=== PATIENT | female | born 1955 | race African-American/Black ===

== ENCOUNTER 2018-09-29 09:29 | Emergency (ER) | payer BC, OTHER ==
--- OUTSIDE RECORDS SUMMARY | 2018-09-29 09:32 | XMS REPORT | Clinical Summary ---
:1955 Author Organization [facility] Address [address] [place] [address] Care Team Providers Name Role Phone Tiffany Pratt MD Primary Care Provider Unavailable Allergies Active Allergy Reactions Severity Noted Date Comments [place] Codeine Nausea And Vomiting, GI Intolerance 05/07/2013 Ibuprofen Shortness Of Breath High 06/29/2008 asthma asthma Medications Medication Sig Dispensed Refills Start Date End Date Status CALCIUM Take by mouth. 0 Active POLYCARBOPHIL (FIBER THERAPY, CA POLYCARBOPH, ORAL) cetirizine (ZyrTEC) Take 10 mg by 0 Active 10 MG tablet mouth nightly. GARLIC ORAL Take by mouth. 0 Active magnesium chloride Take 64 mg by 0 Active 64 mg mouth daily. tablet,delayed release (DR/EC) DR tablet multivit-min/iron/f Take by mouth. 0 Active olic/lutein (CENTRUM SILVER WOMEN ORAL) propranolol Take 1 tablet 180 tablet 1 08/31/2018 08/31/19 Active (INDERAL) 10 MG (10 mg total) 20 tabletIndications: by mouth 2 Benign essential (two) times a hypertension day. chlorthalidone Take 1 tablet 90 tablet 1 08/31/2018 11/30/19 Active (HYGROTEN) 25 MG (25 mg total) 19 tabletIndications: by mouth daily Benign essential for 90 days. hypertension LORAZepam (ATIVAN) Take 1 tablet 90 tablet 0 08/31/2018 11/30/19 Active 1 MG (1 mg total) 19 tabletIndications: by mouth daily Anxiety as needed for anxiety for up to 90 days. butalbital-acetamin Take 1 tablet 20 tablet 0 08/31/2018 Active ophen-caff by mouth every (FIORICET, ESGIC) 6 (six) hours 50-325-40 mg per as needed for tabletIndications: headaches or Chronic migraine for tension-type up to 20 headache, not doses. intractable fexofenadine Take 180 mg by 0 08/31/19 Discontinued (AL) 180 MG mouth daily. 19 tablet fluticasone 0 05/05/2016 12/21/19 Discontinued (FLONASE) 50 18 mcg/actuation nasal spray FOLIC Take by mouth. 0 05/06/20 Discontinued ACID/MV,FE,MIN 18 (CENTRUM ORAL) CHOLECALCIFEROL, Take by mouth. 0 06/02/20 Discontinued VITAMIN D3, 18 (VITAMIN D3 ORAL) VITAMIN B COMPLEX & Take by mouth. 0 06/02/20 Discontinued VIT C NO.4 (SUPER B 18 COMPLEX + C ORAL) NON FORMULARY L glutamine - 0 12/21/19 Discontinued po daily. 18 cyanocobalamin 500 Take 500 mcg 0 05/06/20 Discontinued MCG tablet by mouth. 18 ferrous sulfate 325 Take by mouth. 0 06/02/20 Discontinued (65 FE) MG tablet 18 budesonide-formoter Inhale 2 puffs 10.2 Inhaler 3 06/11/2017 10/24/19 Discontinued ol (SYMBICORT) 2 (two) times 18 160-4.5 a day. mcg/actuation inhalerIndications: Intermittent asthma, unspecified asthma severity, unspecified whether complicated chlorthalidone Take 1 tablet 90 tablet 3 06/11/2017 02/15/20 Discontinued (HYGROTEN) 25 MG (25 mg total) 18 tabletIndications: by mouth daily Benign essential for 90 days. hypertension LORAZepam (ATIVAN) Take 1 tablet 90 tablet 1 06/11/2017 12/28/19 Discontinued 1 MG (1 mg total) 18 tabletIndications: by mouth daily Anxiety as needed for anxiety for up to 90 days. potassium chloride Take 1 capsule 90 capsule 3 06/11/2017 10/24/19 Discontinued (MICRO-K) 10 MEQ CR (10 mEq total) 18 capsuleIndications: by mouth Benign essential daily. hypertension albuterol (PROAIR Inhale 2 puffs 18 g 3 06/11/2017 10/24/19 Discontinued HFA,PROVENTIL every 6 (six) 18 HFA,VENTOLIN HFA) hours as 90 mcg/actuation needed for inhalerIndications: wheezing or Intermittent shortness of asthma, unspecified breath. asthma severity, unspecified whether complicated budesonide-formoter Inhale 2 puffs 10.2 Inhaler 3 10/24/2017 05/06/20 Discontinued ol (SYMBICORT) 2 (two) times 18 160-4.5 a day. mcg/actuation inhalerIndications: Intermittent asthma, unspecified asthma severity, unspecified whether complicated potassium chloride Take 1 capsule 90 capsule 1 10/24/2017 05/06/20 Discontinued (MICRO-K) 10 MEQ CR (10 mEq total) 18 capsuleIndications: by mouth Benign essential daily. hypertension albuterol (PROAIR Inhale 2 puffs 18 g 3 10/24/2017 10/25/19 Discontinued HFA,PROVENTIL every 6 (six) 18 HFA,VENTOLIN HFA) hours as 90 mcg/actuation needed for inhalerIndications: wheezing or Intermittent shortness of asthma, unspecified breath. asthma severity, unspecified whether complicated albuterol (PROAIR Inhale 2 puffs 18 g 3 10/25/2017 02/16/20 Discontinued HFA) 90 every 6 (six) 18 mcg/actuation hours as inhaler needed for wheezing. LORAZepam (ATIVAN) Take 1 tablet 90 tablet 0 12/29/2017 02/15/20 Discontinued 1 MG (1 mg total) 18 tabletIndications: by mouth daily Anxiety as needed for anxiety for up to 90 days. chlorthalidone 1 tablet 3 01/19/2018 05/06/20 Discontinued (HYGROTEN) 25 MG daily. 18 tablet cyanocobalamin Take 1 tablet 0 06/02/20 Discontinued (VITAMIN B-12) 500 by mouth 18 MCG tablet daily. montelukast Take 1 tablet 0 08/31/19 Discontinued (SINGULAIR) 10 mg by mouth 19 tablet nightly. folic Take 1 tablet 0 06/02/20 Discontinued acid/multivit,iron, by mouth 18 insurance claims examiner (CENTRUM daily. ORAL) calcium Take 1 tablet 0 05/18/20 Discontinued polycarbophil by mouth 18 (FIBER-TABS ORAL) daily. MAGNESIUM ORAL Take 1 tablet 0 06/02/20 Discontinued by mouth every 18 7 days. chlorthalidone Take 1 tablet 90 tablet 1 02/15/2018 05/07/20 Discontinued (HYGROTEN) 25 MG (25 mg total) 18 tabletIndications: by mouth daily Benign essential for 90 days. hypertension LORAZepam (ATIVAN) Take 1 tablet 90 tablet 0 02/15/2018 08/31/19 Discontinued 1 MG (1 mg total) 19 tabletIndications: by mouth daily Anxiety as needed for anxiety for up to 90 days. albuterol (PROAIR Inhale 2 puffs 18 g 3 02/15/2018 06/02/20 Discontinued HFA) 90 every 6 (six) 18 mcg/actuation hours as inhaler needed for wheezing. potassium chloride Take 1 capsule 90 capsule 1 05/07/2018 08/31/19 Discontinued (MICRO-K) 10 MEQ CR (10 mEq total) 19 capsuleIndications: by mouth Benign essential daily. hypertension chlorthalidone Take 1 tablet 90 tablet 1 05/08/2018 08/31/19 Discontinued (HYGROTEN) 25 MG (25 mg total) 19 tabletIndications: by mouth daily Benign essential for 90 days. hypertension amoxicillin-pot TK 1 T PO Q 12 0 05/13/2018 06/02/20 Discontinued clavulanate H FOR 10 DAYS 18 (AUGMENTIN) 875-125 mg per tablet triamcinolone 2 sprays into 0 06/02/20 Discontinued (NASACORT) 55 mcg each nostril 18 nasal inhaler daily. fluconazole Take 1 tablet 1 tablet 1 05/19/2018 05/19/20 (DIFLUCAN) 150 MG (150 mg total) 18 tabletIndications: by mouth once Prophylactic for 1 dose. antibiotic propranolol Take 1 tablet 60 tablet 0 06/29/2018 08/31/19 Discontinued (INDERAL) 10 MG (10 mg total) 19 tabletIndications: by mouth 2 Benign essential (two) times a hypertension day. Active Problems Problem Noted Date SBO (small bowel obstruction) 05/07/2013 MVP (mitral valve prolapse) 04/11/2013 H/O goiter 04/11/2013 Benign essential hypertension 04/11/2013 Asthma 04/11/2013 Anxiety 04/11/2013 Encounters Date Type Specialty Care Team Description 09/20/2018 Telephone Family Medicine Quin Fuentes MA 08/31/2018 Office Visit Family Medicine Tiffany Pratt MD Chronic tension- type headache, not intractable (Primary Dx); Benign essential hypertension; Anxiety 08/25/2018 Telephone Family Tiffany Arellano MD 06/29/2018 Office Visit Family Medicine Tiffany Pratt MD Benign essential hypertension (Primary Dx) 06/24/2018 Emergency Emergency Medicine Ifeoma Ward III, MD hypertension (Primary Dx) 06/24/2018 Telephone [facility] Quin Fuentes MA 06/02/2018 Office Visit [facility] Tiffany Pratt MD Other fatigue ( Primary Dx); Dizziness; Nasal congestion; Tingling 05/31/2018 Telephone [facility] Quin Fuentes, VALENTINA 05/27/2018 Telephone [facility] Quin Fuentes, VALENTINA 05/26/2018 Orders Only [facility] Quin Fuentes MA Chronic pulmonary congestion (Primary Dx) 05/26/2018 Telephone [facility] Tiffany Pratt MD 05/19/2018 Telephone [facility] Quin Fuentes MA 05/19/2018 Orders Only [facility] Tiffany Arellano MD Prophylactic antibiotic (Primary Dx) 05/18/2018 Office Visit [facility] Tiffany Arellano MD Feeling light headed (Primary Dx); Upper respiratory tract infection, unspecified type; Benign essential hypertension; H/O goiter 05/11/2018 Telephone [facility] Quin Fuentes MA 05/07/2018 Refill Family Tiffany Arellano MD Benign essential hypertension 05/06/2018 Office Visit Family Tiffany Arellano MD Epigastric pain ( Primary Dx); Hepatomegaly; Thyromegaly 05/06/2018 Refill Family Tiffany Arellano MD Benign essential hypertension 05/06/2018 Refill Family Courtney Grant Benign essential hypertension 05/06/2018 Telephone Family Tiffany Arellano MD 02/15/2018 Refill [facility] Quin Hackett MA 02/14/2018 Refill Family Tiffany Arellano MD Benign essential hypertension; Anxiety 02/14/2018 Refill Family Courtney Grant Benign essential hypertension 01/26/2018 Office Visit Family Tiffany Arellano MD Routine check-up (Primary Dx); Screening for deficiency anemia; Screening for diabetes mellitus (DM); Screening for hyperlipidemia; Screening for thyroid disorder; Screening for breast cancer; Post-menopausal; Screening for colon cancer 12/27/2017 Refill [facility] Medicine Quin Fuentes MA Anxiety 12/20/2017 Office Visit Family Tiffany Arellano MD Dizziness ( Primary Dx); Tingling; Benign essential hypertension; Vitamin D deficiency; Congestion of left ear 10/25/2017 Refill Family Tiffany Arellano MD 10/25/2017 Orders Only Family Medicine Courtney Whitt MD 10/24/2017 Refill Family Tiffany Arellano MD Intermittent asthma, unspecified asthma severity, unspecified whether complicated; Benign essential hypertension after 09/28/2017 Immunizations Name Dates Previously Given Next Due FLUZONE HIGH-DOSE PF 04/28/2018 Hep A, Unspecified 12/28/2012, 11/21/2012 Hep B, Unspecified 12/28/2012, 11/21/2012 Influenza Trivalent 05/30/2016 Meningococcal Polysaccharide 11/21/2012 Pneumococcal Conjugate 13-Valent 06/15/2016 Tdap 11/21/2012 Zoster 11/21/2012 Zoster Vaccine Recombinant 04/28/2018 Family History Medical History Relation Name Comments Hypertension Father Edmund toledo Cancer Maternal Grandmother Colleen tapia Asthma Mother Amy toledo Relation Name Status Comments Father Edmund toledo Maternal Grandmother Colleen tapia Mother Amy toledo Social History Tobacco Use Types Packs/Day Years Used Date Never Smoker Smokeless Tobacco: Never Used Alcohol Use Drinks/Week oz/Week Comments No Sex Assigned at Date Recorded Not on file Job Start Date Occupation Industry Not on file Not on file Not on file Travel History Travel Start Travel End No recent travel history available. Last Filed Vital Signs Vital Sign Reading Time Taken Blood Pressure 131/86 08/31/2018 10:08 AM [facility] Pulse 70 08/31/2018 10:08 AM [facility] Temperature 36.6 C (97.9 F) 08/31/2018 10:08 AM [facility] Respiratory Rate 17 06/29/2018 1:39 PM CDT Oxygen Saturation 97% 08/31/2018 10:08 AM [facility] Inhaled Oxygen Concentration - - Weight 80.7 kg (178 lb) 08/31/2018 10:08 AM [facility] Height 172.7 cm (5' 8") 08/31/2018 10:08 AM [facility] Body Mass Index 27.06 08/31/2018 10:08 AM [facility] Plan of Treatment Date Type Specialty Care Team Description 09/29/2018 Office Visit Family Tiffany Arellano MD [address] [address] [address] [place], [place] [id number] Osmin Robles DO [address] [facility] [address] [place], [place] [id number] 11/07/2018 Office Visit Family Medicine Tiffany Pratt MD [address] [address] [address] [place] [address] Health Maintenance Due Date Last Done Comments CERVICAL CANCER SCREENING 01/15/1976 COLON CANCER SCREENING 2005 SHINGLES VACCINES (2 of 3) 06/23/2018 04/28/2018 BREAST CANCER SCREENING 10/10/2018 10/10/2016 INFLUENZA VACCINE Completed 04/28/2018, 05/30/2016 Procedures Procedure Name Priority Date/Time Associated Diagnosis Comments MANUAL DIFFERENTIAL Routine 06/24/2018 4:00 PM CDT CBC HEMOGRAM Routine 06/24/2018 4:00 Results for this PM CDT procedure are in the results section. ESTIMATED GFR STAT 06/24/2018 4:00 Results for this PM CDT procedure are in the results section. B NATRIURETIC PEP, STAT 06/24/2018 4:00 Results for this I-STAT PM CDT procedure are in the results section. CREATINE KINASE, TOTAL STAT 06/24/2018 4:00 Results for this (CPK) PM CDT procedure are in the results section. TROPONIN, I-STAT STAT 06/24/2018 4:00 Results for this PM CDT procedure are in the results section. COMPREHENSIVE STAT 06/24/2018 4:00 Results for this METABOLIC PANEL PM CDT procedure are in the results section. ECG 12-LEAD STAT 06/24/2018 3:50 Results for this PM CDT procedure are in the results section. ECG ED PRELIMINARY Routine 06/24/2018 3:42 Results for this INTERPRETATION PM CDT procedure are in the results section. VITAMIN D 25 HYDROXY Routine 06/02/2018 10:45 Other fatigue Results for this LEVEL AM CDT Dizziness procedure are in Nasal congestion the results Tingling section. BASIC METABOLIC PANEL Routine 06/02/2018 10:45 Other fatigue Results for this AM CDT Dizziness procedure are in Nasal congestion the results Tingling section. URINALYSIS, AUTOMATED Routine 05/06/2018 10:32 Results for this WITH MICROSCOPY AM CDT procedure are in the results section. URINE CULTURE Routine 05/06/2018 10:32 Epigastric pain Results for this AM CDT procedure are in the results section. THYROID STIMULATING Routine 02/03/2018 8:30 Screening for thyroid Results for this HORMONE AM CDT disorder procedure are in the results section. HEPATIC FUNCTION PANEL Routine 02/03/2018 8:30 Screening for Results for this AM CDT hyperlipidemia procedure are in the results section. LIPID PANEL Routine 02/03/2018 8:30 Screening for Results for this AM CDT hyperlipidemia procedure are in the results section. HEMOGLOBIN A1C Routine 02/03/2018 8:30 Screening for Results for this AM CDT diabetes mellitus procedure are in (DM) the results section. CBC WITH PLATELET AND Routine 02/03/2018 8:30 Screening for Results for this DIFFERENTIAL AM CDT deficiency anemia procedure are in the results section. VITAMIN D 25 HYDROXY Routine 12/20/2017 12:32 Vitamin D deficiency Results for this LEVEL PM CDT procedure are in the results section. BASIC METABOLIC PANEL Routine 12/20/2017 12:32 Dizziness Results for this PM CDT Tingling procedure are in the results section. after 09/28/2017 Results Estimated GFR (06/24/2018 4:00 PM CDT) Estimated GFR >=90 mL/min/1.73 m2 DEPARTMENT OF Comment: PATHOLOGY AND GENOMIC CatergoryUnitsInterpretation [facility] G1 >=90 Normal or high [facility] G2 60-89Mildly decreased CENTER [id number] to moderately decreased [id number] to severely decreased G4 15-29Severely decreased G5 <15Kidney failure The eGFR was calculated using the Chronic Kidney Disease Epidemiology Collaboration (CKD-EPI) equation. Interpretation is based on recommendations of the National Kidney Foundation-Kidney Disease Outcomes Quality Initiative (NKF-KDOQI) published in 2014. Specimen Plasma specimen Performing Organization Address City/State/Zipcode Phone Number DEPARTMENT OF PATHOLOGY AND [address] [place] [address] [facility] Troponin, I-Stat (06/24/2018 4:00 PM CDT) Troponin, I-Stat 0.00 0.00 - 0.08 ng/mL DEPARTMENT OF Comment: PATHOLOGY AND GENOMIC 0.09 - 1.49 ng/mlMay indicate increased risk of acute [facility] coronary syndrome. [facility] >=1.5 ng/mlConsistent with acute myocardial CENTER infarction. The diagnostic value of a single normal or non-diagnostic result is questionable.Serial samples at 2-6 hour intervals are required to rule out acute myocardial injury. Specimen Plasma specimen Performing Organization Address City/State/Zipcode Phone Number DEPARTMENT OF PATHOLOGY AND [address] [place] [address] [facility] B natriuretic pep, I-Stat (06/24/2018 4:00 PM CDT) BNP, I-Stat 37 0 - 100 pg/mL DEPARTMENT OF PATHOLOGY AND GENOMIC MEDICINE [facility] Specimen Blood Performing Organization Address City/State/Zipcode Phone Number DEPARTMENT OF PATHOLOGY AND [address] [place] [address] [facility] CBC hemogram (06/24/2018 4:00 PM CDT) WBC 4.03 (L) 4.50 - 11.00 k/uL [facility] RBC 4.04 (L) 4.20 - 5.50 m/uL [facility] HGB 11.5 (L) 12.0 - 16.0 g/dL [facility] HCT 34.5 (L) 37.0 - 47.0 % [facility] MCV 85.4 82.0 - 100.0 fL [facility] MCH 28.5 27.0 - 34.0 pg [facility] MCHC 33.3 31.0 - 37.0 g/dL [facility] RDW - SD 39.5 37.0 - 55.0 fL [facility] MPV 10.4 8.8 - 13.2 fL [facility] Platelet count 284 150 - 400 k/uL [facility] Performing Organization Address City/State/Zipcode Phone Number DEPARTMENT OF PATHOLOGY AND [address] Creatine kinase, total (CPK) (06/24/2018 4:00 PM CDT) Creatine kinase 84 30 - 190 U/L [facility] Specimen Plasma specimen Performing Organization Address City/State/Zipcode Phone Number DEPARTMENT OF PATHOLOGY AND [address] [place], [place] [id number] [place] [address] Comprehensive metabolic panel (06/24/2018 4:00 PM CDT) Sodium 144 128 - 145 mEq/L [facility] Potassium 3.9 3.6 - 5.1 mEq/L [facility] CO2 30 18 - 33 mEq/L [facility] Chloride 103 98 - 108 mEq/L [facility] Glucose 88 73 - 118 mg/dL [facility] Calcium 9.4 8.0 - 10.3 mg/dL [facility] BUN 7 7 - 22 mg/dL [facility] Creatinine 0.8 0.5 - 0.9 mg/dL [facility] Alkaline phosphatase 75 42 - 141 U/L [facility] ALT 19 10 - 47 U/L [facility] AST 37 11 - 38 U/L [facility] Total bilirubin 0.5 0.2 - 1.6 mg/dL [facility] Albumin 3.9 3.3 - 5.5 g/dL [facility] Protein 7.4 6.4 - 8.1 g/dL [facility] Anion gap 11@ANIO 7 - 15 mEq/L [facility] A/G ratio 1.1 0.7 - 3.8 [facility] Specimen Plasma specimen Performing Organization Address City/[facility] Phone Number DEPARTMENT OF PATHOLOGY AND [address] [place] [address] [facility] ECG 12 lead (06/24/2018 3:50 PM CDT) Ventricular rate 71 [facility] Atrial rate 71 [facility] WI interval 120 [facility] QRSD interval 76 [facility] QT interval 404 [facility] QTC interval 439 [facility] P axis 1 69 [facility] QRS axis 1 53 [facility] T wave axis 24 [facility] EKG impression Normal sinus rhythm-Possible Left atrial [facility] enlargement-Borderline ECG-No previous ECGs available- Performing Organization Address City/[facility] Cent[facility] Phone Number [facility] MUSE [address] [place] [address] ECG ED Preliminary Interpretation - NOT AN ORDER (06/24/2018 3:42 PM CDT) Narrative Performed At Ifeoma Ward III, MD 06/24/20184:32 PM ECG ED Preliminary Interpretation - Not an Order Performed by: IFEOMA WARD III Authorized by: IFEOMA WARD III ECG reviewed by ED Physician in the absence of a physics instructor: yes Interpretation: Interpretation: normal Rate: ECG rate:71 ECG rate assessment: normal Rhythm: Rhythm: sinus rhythm Ectopy: Ectopy: none QRS: QRS axis:Normal QRS intervals:Normal Conduction: Conduction: normal ST segments: ST segments:Normal T waves: T waves: normal Vitamin D 25 hydroxy level (06/02/2018 10:45 AM CDT)Only the most recent of2 resultswithin the time period is included. Vitamin D, 25-hydroxy 34 30 - 100 ng/mL [facility] Comment: [place] Vitamin D Status 25-OH Vitamin D: Deficiency:<20 ng/mL Insufficiency: 20 - 29 ng/mL Optimal: > or=30 ng/mL For 25-OH Vitamin D testing on patients on D2-supplementation and patients for whom quantitation of D2 and D3 fractions is required, the QuestAssureD(TM) 25-OH VIT D, (D2,D3), LC/MS/MS is recommended: order code 99914 (patients >2yrs). For more information on this test, go to: http://education.Selftrade/faq/ZTE966 (This link is being provided for informational/educational purposes only.) Specimen Blood Resulting Agency Comment Performing Organization Information: Site ID: [id number] Name: [facility] Address: [address] [place] [id number] Director: Dinora Spicer Performing Organization Address City/State/Zipcode [place] [address] Basic metabolic panel (06/02/2018 10:45 AM CDT)Only the most recent of2 resultswithin the time period is included. Glucose 80 65 - 99 mg/dL [facility] Comment: [place] Fasting reference interval BUN, whole blood 12 7 - 25 mg/dL [facility] [place] Creatinine 0.73 0.50 - 0.99 [facility] Comment: mg/dL [place] For patients >49 years of age, the reference limit for Creatinine is approximately 13% higher for people identified as -Swazi. EGFR Non-Afr. Swazi 88 > OR=60 [facility] mL/min/1.73m2 [place] EGFR 102 > OR=60 [facility] mL/min/1.73m2 [place] BUN/creatinine ratio NOT APPLICABLE 6 - 22 (calc) [facility] [place] Sodium 141 135 - 146 mmol/L [facility] Potassium 3.6 3.5 - 5.3 mmol/L [facility] [place] Chloride 99 98 - 110 mmol/L [facility] [place] CO2 29 20 - 32 mmol/L [facility] [place] Calcium 9.9 8.6 - 10.4 mg/dL [facility] [place] Specimen Blood Resulting Agency Comment Performing Organization Information: Site ID: [id number] Name: [facility] Address: [address] [place] [phone] Director: Dinora Spicer Performing Organization Address [facility] [place] [address] Urinalysis, automated with microscopy (05/06/2018 10:32 AM CDT) Color, UA YELLOW YELLOW [facility] [place] Appearance CLEAR CLEAR [facility] [place] Specific gravity, urine 1.010 1.001 - 1.035 [facility] [place] pH, urine 8.0 5.0 - 8.0 [facility] [place] Glucose, urine NEGATIVE NEGATIVE [facility] [place] Bilirubin, UA NEGATIVE NEGATIVE [facility] [place] Ketones, UA NEGATIVE NEGATIVE [facility] [place] Occult blood, urine NEGATIVE NEGATIVE [facility] [place] Protein, UA NEGATIVE NEGATIVE [facility] [place] Nitrite, UA NEGATIVE NEGATIVE [facility] [place] Leukocyte esterase, UA NEGATIVE NEGATIVE [facility] [place] WBC, UA NONE SEEN < OR=5 /HPF [facility] [place] RBC, UA NONE SEEN < OR=2 /HPF [facility] [place] Squamous epithelial cells, UA NONE SEEN < OR=5 /HPF [facility] [place] Bacteria, UA NONE SEEN NONE SEEN /HPF [facility] [place] Hyaline casts, UA NONE SEEN NONE SEEN /LPF [facility] [place] Resulting Agency Comment Performing Organization Information: Site ID: [id number] Name: [facility] Address: [address] [place] [id number] Director: Dinora Spicer Performing Organization Address [facility] [place] [address] Urine culture (05/06/2018 10:32 AM CDT) Urine culture SEE NOTE (A) Zuldi [place] Comment: CULTURE, URINE, ROUTINE MICRO NUMBER:[id number] TEST STATUS: FINAL SPECIMEN SOURCE: URINE SPECIMEN QUALITY:ADEQUATE RESULT:10,000-50,000 CFU/mL of Coagulase negative Staphylococcus species May represent colonizers from external and internal genitalia. No further testing (including susceptibility) will be performed. COMMENT: Additional organism(s) less than 10,000 CFU/ mL isolated. These organisms, commonly found on external and internal genitalia, are considered colonizers. No further testing performed. Specimen Urine Resulting Agency Comment Performing Organization Information: Site ID: [id number] Name: [facility] Address: [address] [place] [phone] Director: Dinora Spicer Performing Organization Address City/[facility]/Zipcode Phone Number WILMA DILLON [address] [address] CBC with platelet and differential (02/03/2018 8:30 AM CDT) WBC 4.7 3.8 - 10.8 Thousand/uL [facility] RBC 4.32 3.80 - 5.10 Million/uL [facility] HGB 12.2 11.7 - 15.5 g/dL [facility] HCT 37.1 35.0 - 45.0 % [facility] MCV 85.9 80.0 - 100.0 fL [facility] MCH 28.2 27.0 - 33.0 pg Zuldi [place] MCHC 32.9 32.0 - 36.0 g/dL [facility]ul[facility] [place] RDW 12.5 11.0 - 15.0 % [facility] [place] Platelet count 303 140 - 400 Thousand/uL [facility] MPV 10.9 7.5 - 12.5 fL [facility] [place] Neutrophils, absolute 1,824 1,500 - 7,800 cells/uL [facility] [place] Lymphocytes, absolute 2,294 850 - 3,900 cells/uL [facility] [place] Monocytes, absolute 400 200 - 950 cells/uL [facility] [place] Eosinophils, absolute 141 15 - 500 cells/uL [facility]ul[facility] [place] Basophils, absolute 42 0 - 200 cells/uL [facility] [place] Neutrophils 38.8 % [facility] Lymphocytes 48.8 % Zuldi [place] Monocytes 8.5 % [facility] [place] Eosinophils 3.0 % [facility]ul[facility] [place] Basophils + RC 0.9 % [facility]ul[facility] [place] Specimen Blood Resulting Agency Comment Performing Organization Information: Site ID: [id number] Name: [facility] Address: [address] [place] [phone] Director: Dinora Spicer Performing Organization Address City/State/Zipcode Phone Number WILMA PEOPLES [address] [address] Thyroid stimulating hormone (02/03/2018 8:30 AM CDT) TSH 0.62 0.40 - 4.50 mIU/L [facility] RICHELLE [place] Specimen Blood Resulting Agency Comment Performing Organization Information: Site ID: [id number] [facility]: [facility] Address: [address] [place] [phone] Director: Dinora Spicer Performing Organization Address [facility] Phone Number WILMA PEOPLES [place] [phone] Hemoglobin A1c (02/03/2018 8:30 AM CDT) Hemoglobin A1C 4.7 <5.7 % of total Hgb [facility] Comment: For the purpose of screening for the presence of diabetes: <5.7% Consistent with the absence of diabetes 5.7-6.4%Consistent with increased risk for diabetes (prediabetes) > or=6.5%Consistent with diabetes This assay result is consistent with a decreased risk of diabetes. Currently, no consensus exists regarding use of hemoglobin A1c for diagnosis of diabetes in children. According to [place] Diabetes Association (ADA) guidelines, hemoglobin A1c <7.0% represents optimal control in non- diabetic patients. Different metrics may apply to specific patient populations. Standards of Medical Care in Diabetes(ADA). Specimen Blood Resulting Agency Comment Performing Organization Information: Site ID: [id number] Name: [facility] Address: [address] [place] [phone] Director: Dinora Spicer Performing Organization Address [facility] Phone Number WILMA PEOPLES [address] [phone] Hepatic function panel (02/03/2018 8:30 AM CDT) Protein 7.3 6.1 - 8.1 g/dL [facility] Albumin, S 4.5 3.6 - 5.1 g/dL Zuldi [place] Globulin, total 2.8 1.9 - 3.7 g/dL (calc) [facility] Albumin/globulin ratio 1.6 1.0 - 2.5 (calc) [facility] Total bilirubin 0.5 0.2 - 1.2 mg/dL [facility] Bilirubin direct 0.1 < OR=0.2 mg/dL [facility] Bilirubin, indirect 0.4 0.2 - 1.2 mg/dL (calc) [facility] [place] Alkaline phosphatase 85 33 - 130 U/L [facility] AST 20 10 - 35 U/L [facility] ALT 11 6 - 29 U/L [facility] [place] Specimen Blood Resulting Agency Comment Performing Organization Information: Site ID: [id number] Name: [facility] Address: [address] [place] [phone] Director: Dinora Spicer Performing Organization Address City/[facility] Cent[facility]ode Phone Number [facility] [address] [place] [phone] Lipid panel (02/03/2018 8:30 AM CDT) Cholesterol, total 163 <200 mg/dL [facility] HDL cholesterol 65 >50 mg/dL [facility] Triglycerides 40 <150 mg/dL [facility] LDL cholesterol 87 mg/dL (calc) [facility] calculated Comment: [place] Reference range: <100 Desirable range <100 mg/dL for primary prevention; <70 mg/dL for patients with CHD or diabetic patients with > or=2 CHD risk factors. LDL-C is now calculated using the Oswaldo-Mk calculation, which is a validated novel method providing better accuracy than the Friedewald equation in the estimation of LDL-C. Oswaldo SS et al. JEANIE. 2013;310(19): 2289-3694 (http://education.Music [employer]/faq/ZJO289) Cholesterol/HDL ratio 2.5 <5.0 (calc) [facility] Non-HDL cholesterol 98 <130 mg/dL [facility] Comment: (calc) [place] For patients with diabetes plus 1 major ASCVD risk factor, treating to a non-HDL-C goal of <100 mg/dL (LDL-C of <70 mg/dL) is considered a therapeutic option. Specimen Blood Resulting Agency Comment Performing Organization Information: Site ID: [id number] Name: [facility] Address: [address] [place] [phone] Director: Dinora Spicer Performing Organization Address City/State/Zipcode Phone Number [facility] [address] [place] [phone] after 09/28/2017 Insurance Payer Benefit Plan / Group Subscriber ID Type Phone Address [employer] [place] HMO,POS,EPO, MC/EC xxxxxxxxxx HMO ([place]) [place] [address] Advance Directives Patient has advance care planning documents on file. For more information, please contact:Colby Baptiste[address] [place] [address]
--- OUTSIDE RECORDS SUMMARY | 2018-09-29 09:33 | XMS REPORT ---
:1955 [facility] Address [address] [place] [address] [address] [place] [address] Care Team Providers Name Role Phone Unavailable Unavailable Unavailable Problems This patient has no known problems. Allergies, Adverse Reactions, Alerts This patient has no known allergies or adverse reactions. Medications This patient has no known medications.
--- OUTSIDE RECORDS SUMMARY | 2018-09-29 09:33 | XMS REPORT | Continuity of Care Document ---
:1955 Author Organization Interface Problems Problem Status Onset Classification Date Comments Source Date Reported DX: Active 02/16/20 E04.2=NONTOXIC [address] [place] MULTINODULAR GOITER Allergic Active 03/14/20 Problem 02/25/2017 Data rhinitis<sup>1</s 15 migrated [place] up> from [employer] on 04/03/15. Goiter<sup>2</sup Active 03/14/20 Problem 02/25/2017 Data MH > 15 migrated [place] from [employer] on 04/03/15. Postmenopausal Active 03/14/20 Problem 02/25/2017 Data state<sup>3</sup> 15 migrated [place] from [employer] on 04/03/15. Screening for Active 03/14/20 Problem 02/25/2017 Data osteoporosis<sup> 15 migrated [place] 4</sup> from [employer] on 04/03/15. Vaginitis<sup>5</ Active 10/08/19 Problem 02/25/2017 Data MH sup> 15 migrated [place] from [employer] on 03/06/15. Medications Medication Details Route Status Patient Ordering Order Source Instructions Provider Date Allergies, Adverse Reactions, Alerts Substance Category Reaction Severity Reaction Status Date Comments Source type Reported ibuprofen<s Assertion Drug Active Data up>1, allergy 5 migrated [place] 2</sup> from [employer] on03/07/15. Originally documented as IBUPROFEN. Immunizations Immunization Date Given Site Status Last Updated Comments Source Results Order Results Value Reference Date Interpretation Comments Source Name Range Thyroid Thyroid Patient Name: TONY PRESTON 02/22 - MH biopsy w biopsy - [facility] guidance guidance : 1955; Age: 62 years Female US MR: [id number] Read by: Hiram Ramos MD Dictated Date/time: 02/22/17 15:22 Study: Thyroid biopsy w guidance US, Thyroid biopsy w guidance US 2016 10:10 AM CDT Electronically Signed by: Hiram Ramos MD 02/22/17 15:25 FINAL REPORT PROCEDURE: 1. Ultrasound-guided fine-needle aspiration of a right thyroid nodule 2. Ultrasound-guided fine-needle aspiration of a left thyroid nodule CLINICAL INFORMATION: Bilateral thyroid nodules CONSENT: The procedure, risks, benefits and alternatives were discussed with the patient and written informed consent was obtained. TECHNIQUE: cutter operator tile: Dr. Ramos Preoperative diagnosis: Bilateral thyroid nodules Postoperative diagnosis: Same Estimated blood loss: Minimal Pain control: 1% lidocaine was administered for local anesthesia. Preprocedure sonographic imaging demonstrated a 4.7 cm spongiform nodule within the left thyroid lobe as well as a 2.8 cm solid nodule within the right thyroid lobe. The patient's neck was prepped and draped in the usual sterile fashion. The overlying skin was anesthetized with 1% lidocaine. Under sterile sonographic guidance, fine-needle aspiration (4 passes) was performed of the right thyroid nodule using 25-gauge needles. Slides were prepared by the ocular care technologist. Under sterile sonographic guidance, fine-needle aspiration (4 passes) was performed of the left thyroid nodule using 25-gauge needles. Slides were prepared by the ocular care technologist. Patient tolerated the procedure well without immediate complication. IMPRESSION: Successful ultrasound-guided fine-needle aspiration of the bilateral thyroid nodules as described. SL: [id number] Thyroid Thyroid Patient Name: TONY PRESTON 02/22 - biopsy w biopsy w - [facility] guidance guidance : 1955; Age: 62 years Female US US MR: [id number] Read by: Hiram Ramos MD Dictated Date/time: 02/22/17 15:22 Study: Thyroid biopsy w guidance US, Thyroid biopsy w guidance US 2016 10:10 AM CDT Electronically Signed by: Hiram Ramos MD 02/22/17 15:25 FINAL REPORT PROCEDURE: 1. Ultrasound-guided fine-needle aspiration of a right thyroid nodule 2. Ultrasound-guided fine-needle aspiration of a left thyroid nodule CLINICAL INFORMATION: Bilateral thyroid nodules CONSENT: The procedure, risks, benefits and alternatives were discussed with the patient and written informed consent was obtained. TECHNIQUE: cutter operator tile: Dr. Ramos Preoperative diagnosis: Bilateral thyroid nodules Postoperative diagnosis: Same Estimated blood loss: Minimal Pain control: 1% lidocaine was administered for local anesthesia. Preprocedure sonographic imaging demonstrated a 4.7 cm spongiform nodule within the left thyroid lobe as well as a 2.8 cm solid nodule within the right thyroid lobe. The patient's neck was prepped and draped in the usual sterile fashion. The overlying skin was anesthetized with 1% lidocaine. Under sterile sonographic guidance, fine-needle aspiration (4 passes) was performed of the right thyroid nodule using 25-gauge needles. Slides were prepared by the ocular care technologist. Under sterile sonographic guidance, fine-needle aspiration (4 passes) was performed of the left thyroid nodule using 25-gauge needles. Slides were prepared by the ocular care technologist. Patient tolerated the procedure well without immediate complication. IMPRESSION: Successful ultrasound-guided fine-needle aspiration of the bilateral thyroid nodules as described. SL: [id number] Vital Signs Vital Sign Value Date Comments Source Encounters Location Location Encounter Encounter Reason Attending ADM DC Status Source Details Type Number For Provider Date Date Visit [facility] [id number] Brian 02/22 02/23 ADOLPH Mckinley /2016 [facility] Procedures Procedure Code Date Perfomer Comments Source
--- OUTSIDE RECORDS SUMMARY | 2018-09-29 09:33 | XMS REPORT | Summary of Care ---
:1955 Author Name Valerie Elliott Address [facility] Unavailable , Care Team Providers Name Role Phone Valerie Elliott Unavailable Unavailable Wili Mckinley MD Unavailable Unavailable Unavailable Unavailable Unavailable Functional Status Name Dates Details Functional status health issues are not documented Status: Name Dates Details Cognitive status health issues are not documented Status: Problems Name Dates Details Multinodular goiter (241.1, E04.2) Status: Active Abnormal results of thyroid function studies (794.5, R94.6) Status: Active Medications Name Dates Details Potassium TABS Refills: 0 Active Singulair TABS Refills: 0 Active Fiber TABS Refills: 0 Active Symbicort AERO Refills: 0 Active Centrum TABS Refills: 0 Active Vitamin B-12 TABS Refills: 0 Active Selenium TABS Refills: 0 Active Magnesium TABS Refills: 0 Active LORazepam 1 MG Oral Tablet Refills: 0 Active Chlorthalidone TABS Refills: 0 Active Allergies and Adverse Reactions Name Dates Details [place] (Diagnostic) SOLN (Allergy) Status: Active ibuprofen (Allergy) Status: Active Past Medical History Name Dates Details History of Abnormal weight (780.99, R68.89) Status: Resolved History of asthma (V12.69, Z87.09) Status: Resolved History of goiter (V12.29, Z86.39) Status: Resolved Procedures Procedure Dates Details History of hysterectomy total Completed History of endometrial biopsy Completed Immunization Name Dates Details Immunizations not documented Family History Name Dates Details Family history of myocardial infarction (V17.3, Z82.49) Status: Active Social History Name Dates Details Unknown if ever smoked Vital Signs Date Test Result Details No Known Vitals to report Results Date Description Value Details Results not documented Plan of Care Name Dates Details Planned Observations Planned Goals not documented Instructions Name Dates Details Instructions not documented Encounters Appointment; WILI MCKINLEY M.D. On: 02-Feb-2017 14:00 Encounter Diagnosis: Problem not documented Appointment; WILI MCKINLEY M.D. On: 02-Feb-2017 14:00 Encounter Diagnosis: Problem not documented Appointment; WILI MCKINLEY M.D. On: 10-Mar-2017 13:40 Encounter Diagnosis: Problem not documented Appointment; WILI MCKINLEY M.D. On: 08-Nov-2017 9:40 Encounter Diagnosis: Problem not documented
--- OUTSIDE RECORDS SUMMARY | 2018-09-29 09:33 | XMS REPORT | Summary of Care ---
:1955 Author Organization [facility] Address [address] [place], [place] [address]- Encounter HQ Encntr_alias(FIN) [id number] Date(s): 02/22/17 - 02/22/17 [facility] [address] [place] [address]- [phone] Discharge Disposition: Home or Self Care Attending Physician: Brian Mckinley MD Referring Physician: Brian Mckinley MD Vital Signs No data available for this section Problem List Condition Effective Dates Status Health Status Informant Allergic rhinitis1 03/14/15 Active Goiter2 03/14/15 Active Postmenopausal state3 03/14/15 Active Screening for osteoporosis4 03/14/15 Active Vaginitis5 10/08/14 Active 1Data migrated from [employer] on 04/03/15.2Data migrated from [employer] on 04/03/15.3Data migrated from [employer] on 04/03/15.4Data migrated from [employer] on 04/03/15.5Data migrated from [employer] on 03/06/15. Allergies, Adverse Reactions, Alerts Substance Reaction Severity Status ibuprofen1, 2 Active 1Data migrated from [employer] on 03/30/15. Originally documented as IBUPROFEN. asthma attack, [id number] migrated from [employer] on03/07/15. Originally documented as IBUPROFEN. Medications No data available for this section Results No data available for this section Immunizations No data available for this section Procedures No data available for this section Social History Social History Type Response Smoking Status Never smoker; Exposure to Tobacco Smoke None; Cigarette Smoking Last 365 Days No; Reg Smoking Cessation Counseling No Assessment and Plan No data available for this section
--- NOTE | 2018-09-29 11:13 | RAD REPORT ---
EXAM DESCRIPTION: CT - Head Brain Wo Cont - 09/29/2018 11:00 am CLINICAL HISTORY: Weakness, dizziness, extremity tingling COMPARISON: None. TECHNIQUE: Axial 5 mm thick images of the head were obtained without IV contrast. All CT scans are performed using dose optimization technique as appropriate and may include automated exposure control or mA/KV adjustment according to patient size. FINDINGS: No intracranial hemorrhage, mass, edema or shift of mid-line structures. No acute infarcti on changes seen. No abnormal extra-axial fluid collections. Ventricles are normal. No significant atr ophy or chronic ischemic change. Physiologic calcifications are present. Mastoid air cells and visualized portions of the paranasal sinuses are clear. No acute bony findings. IMPRESSION: Negative non-contrast CT head examination for acute or significant finding.
--- NOTE | 2018-09-29 11:16 | RAD REPORT ---
EXAM DESCRIPTION: RAD - Chest Single View - 09/29/2018 11:07 am CLINICAL HISTORY: Weakness, dizziness, possible allergic reaction COMPARISON: None. TECHNIQUE: AP portable chest image was obtained 1104 hours . FINDINGS: Lungs are clear. Heart and vasculature are normal. No measurable pleural effusion and no p neumothorax. No acute bony abnormality seen. No acute aortic findings suspected. IMPRESSION: No acute cardiopulmonary process.
[2018-09-29 11:23] LABS: Absolute Lymphocytes (CBC) 1.1 K/uL (0.7-4.9); Absolute Monocytes 0.1 K/uL (0.1-1.3); Basophils % 0.2 % (0-1.3); Lymphocytes % 17.5 % (15.3-44.8); MPV 9.2 fL (7.6-11.3); Monocytes % 1.4 % (3.3-12.3); RBC Red Blood Cell Count 4.58 M/uL (3.86-4.86)
[2018-09-29 11:26] LABS: Protime INR 1.04
[2018-09-29 11:49] LABS: ALT/SGPT 18 U/L (12-78); AST/SGOT 18 U/L (15-37); Albumin 4.2 g/dL (3.4-5.0); Alkaline Phosphatase 95 U/L (45-117); BUN Blood Urea Nitrogen 13 mg/dL (7-18); Bicarbonate 33 mmol/L (21-32); Bilirubin Direct < 0.1 mg/dL (0-0.2); Bilirubin Total 0.3 mg/dL (0.2-1.0); Glucose Level 95 mg/dL (74-106); Magnesium 2.1 mg/dL (1.8-2.4); NT PRO-BNP 145 pg/mL (<125); Protein, Total 8.6 g/dL (6.4-8.2); Sodium Level 144 mmol/L (136-145); Troponin (Emerg Dept Use Only) < 0.02 ng/mL (0.0-0.045)
[2018-09-29] MEDS ORDERED: MECLIZINE HCL 12.5 MG TAB ONE (12:01)
--- NOTE | 2018-09-29 12:20 | EKG ---
Test Date: 2018-09-29 Test Time: 10:51:04 Strategic Marketing Manager: HERB MEASUREMENT RESULTS: Intervals: Rate: 64 CO: 128 QRSD: 88 QT: 404 QTc: 416 [place]: P: 71 CO: 128 QRS: 82 T: 42 INTERPRETIVE STATEMENTS: Normal sinus rhythm Normal ECG No previous ECG available for comparison Electronically Signed On 09-29-18 12:19:00 GEOSPATIAL INFORMATION TECHNOLOGIST by Jaswant Parsons
[2018-09-29] MEDS ORDERED: POTASSIUM CL SA 10 MEQ TAB PO ONE (12:47)
--- NOTE | 2018-09-29 13:29 | ER ---
Nurse's Notes [facility] Name: Vitor Stephens Age: 63 yrs Sex: Female : 1955 Arrival Date: 09/29/2018 Time: 09:34 Bed 20 Private MD: Out, [facility] Diagnosis: Vertigo Presentation: 09/29 09:39 Presenting complaint: Patient states: Dizziness, weakness and tingling sensation all ss over body that began this morning. Pt reports Intermittent dizziness since March 2018 and also being seen in the ER 3 days ago after having an allergic reaction to facial cream. Transition of care: patient was not received from another setting of care. Onset of symptoms was September 29, 2018. Risk Assessment: Do you want to hurt yourself or someone else? Patient reports no desire to harm self or others. Initial Sepsis Screen: Does the patient meet any 2 criteria? No. Patient's initial sepsis screen is negative. Does the patient have a suspected source of infection? No. Patient's initial sepsis screen is negative. Care prior to arrival: None. 09:39 Method Of Arrival: Ambulatory ss 09:39 Acuity: TRAE 3 ss Historical: - Allergies: 09:43 NSAIDS; ss 09:43 Doxycycline; ss 09:43 Codeine; ss 09:43 almonds; ss - Immunization history:: Adult Immunizations up to date. - Social history:: Smoking status: Patient/guardian denies using tobacco. - Ebola Screening: : Patient denies exposure to infectious person Patient denies travel to an Ebola-affected area in the 21 days before illness onset. Screenin:40 Abuse screen: Denies threats or abuse. Denies injuries from another. Nutritional aj1 screening: No deficits noted. Tuberculosis screening: No symptoms or risk factors identified. 13:38 Fall Risk None identified. aj1 Assessment: 10:40 General: Appears in no apparent distress. comfortable, Behavior is calm, cooperative, aj1 appropriate for age. Pain: Denies pain. Neuro: Level of Consciousness is awake, alert, obeys commands, Oriented to person, place, time, situation, Registered Dietician are equal bilaterally Moves all extremities. Full function Speech is normal, Facial symmetry appears normal, Reports dizziness, generalized weakness. Cardiovascular: Patient's skin is warm and dry. Respiratory: Airway is patent Respiratory effort is even, unlabored, Respiratory pattern is regular, symmetrical. GI: No signs and/or symptoms were reported involving the gastrointestinal system. : No signs and/or symptoms were reported regarding the genitourinary system. EENT: No signs and/or symptoms were reported regarding the EENT system. Derm: No signs and/or symptoms reported regarding the dermatologic system. Skin is pink, warm \T\ dry. normal. Musculoskeletal: No signs and/or symptoms reported regarding the musculoskeletal system. Circulation, motion, and sensation intact. 11:45 Reassessment: Patient appears in no apparent distress at this time. No changes from 1 previously documented assessment. Patient and/or family updated on plan of care and expected duration. Pain level reassessed. Patient is alert, oriented x 3, equal unlabored respirations, skin warm/dry/pink. 12:53 Reassessment: Patient appears in no apparent distress at this time. No changes from aj1 previously documented assessment. Patient and/or family updated on plan of care and expected duration. Pain level reassessed. Patient is alert, oriented x 3, equal unlabored respirations, skin warm/dry/pink. 13:38 Reassessment: Patient appears in no apparent distress at this time. No changes from aj1 previously documented assessment. Patient and/or family updated on plan of care and expected duration. Pain level reassessed. Patient is alert, oriented x 3, equal unlabored respirations, skin warm/dry/pink. Vital Signs: 09:43 BP 140 / 85; Pulse 69; Resp 16; Temp 97.4(TE); Pulse Ox 100% on R/A; Weight 79.38 kg; Height 5 ft. 8 in. (172.72 cm); Pain 0/10; 11:45 BP 135 / 18; Pulse 67; Resp 18; Pulse Ox 97% on R/A; aj1 12:57 BP 136 / 78; Pulse 66; Resp 18; Pulse Ox 100% on R/A; aj1 09:43 Body Mass Index 26.61 (79.38 kg, 172.72 cm) ED Course: 09:34 Patient arrived in ED. sb2 09:35 Out, [facility] is Private Physician. sb2 09:42 Triage completed. 09:43 Arm band placed on right wrist. 09:47 Lorenza Liu, KIRT is Primary Nurse. ph 10:07 Cruz Monroy PA is PHCP. alisson 10:07 Yuan Temple MD is Attending Physician. jmm 10:[address] via wheelchair. em2 10:32 Radiology exam delayed due to PT INC T. sw 10:38 CT completed. Patient tolerated procedure well. Patient moved back from CT. vr 10:40 Patient has correct armband on for positive identification. Bed in low position. Call aj1 light in reach. Side rails up X 1. injection molding machine tender on. Pulse ox on. NIBP on. 10:40 No provider procedures requiring assistance completed. aj1 11:06 X-ray completed. Portable x-ray completed in exam room. Patient tolerated procedure sw well. 11:09 EKG done, by medical records technician. reviewed by Cruz CLEMENTE. at1 11:27 RAD In Process Unspecified. EDMS 11:27 CT In Process Unspecified. EDMS 13:28 Wilfrid De Luna MD is Referral Physician. jmm 13:38 IV discontinued, intact, bleeding controlled, No redness/swelling at site. Pressure aj1 dressing applied. Administered Medications: 11:56 Drug: Meclizine 50 mg Route: PO; rb1 13:09 Follow up: Response: No adverse reaction aj1 12:30 Drug: Potassium Chloride 40 mEq Route: PO; aj1 13:09 Follow up: Response: No adverse reaction aj1 Outcome: 13:28 Discharge ordered by . jmm 13:39 Discharged to home ambulatory. aj1 13:39 Condition: good 13:39 Discharge instructions given to patient, Instructed on discharge instructions, follow up and referral plans. medication usage, Demonstrated understanding of instructions, follow-up care, medications, Prescriptions given X 1. 13:39 Patient left the ED. aj1 Signatures: Dispatcher [employer] EDMS Vaishali Sanchez, RN RN aj1 Cruz Monroy PA PA [facility] Nely Mcdonnell, Kati Tabares RN, Enrique em2 Criselda Mcginnis, veneer puller EKG Tat1 Lorenza Liu, RN RN Jillian Moser Brittny Khan, RN RN rb1 Summer Ingram sb2
--- NOTE | 2018-09-29 13:30 | EDPHYS ---
Physician Documentation [facility] Name: Vitor Stephens Age: 63 yrs Sex: Female : 1955 Arrival Date: 09/29/2018 Time: 09:34 Bed 20 Private MD: Out, [facility] ED Physician Yuan Temple HPI: 09/29 10:18 This 63 yrs old Black Female presents to ER via Ambulatory with complaints of jmm Dizziness, Weakness. 10:18 The patient presents with sense of spinning. Onset: The symptoms/episode began/occurred jmm acutely, yesterday. Modifying factors: The symptoms are alleviated by holding head still, lying down, the symptoms are aggravated by movement of head, changing position. Associated signs and symptoms: Pertinent positives: tingling. This is a 63 year old female that presents to the ED with complaints of dizziness on movement beginning yesterday and worsening today. Also complains of frontal headache. Patient states initially her dizziness began in march and was evaluated by ENT in July and referred to an it generalist. Patient also complaints of generalized tingling to her body that she hasnt experienced these symptoms since May. Patient denies focal weakness. . Historical: - Allergies: 09:43 NSAIDS; ss 09:43 Doxycycline; ss 09:43 Codeine; ss 09:43 almonds; ss - Immunization history:: Adult Immunizations up to date. - Social history:: Smoking status: Patient/guardian denies using tobacco. - Ebola Screening: : Patient denies exposure to infectious person Patient denies travel to an Ebola-affected area in the 21 days before illness onset. ROS: 10:18 Constitutional: Negative for fever, chills, and weight loss, Cardiovascular: Negative jmm for chest pain, palpitations, and edema, Respiratory: Negative for shortness of breath, cough, wheezing, and pleuritic chest pain. 10:18 Neuro: Positive for headache. 10:18 Neuro: Positive for dizziness, tingling. 10:18 All other systems are negative. Exam: 10:18 Constitutional: This is a well developed, well nourished patient who is awake, alert, jmm and in no acute distress. Head/Face: atraumatic. Eyes: EOMI, no conjunctival erythema appreciated ENT: Moist Mucus Membranes Neck: Trachea midline, Supple Chest/axilla: Normal chest wall appearance and motion. 10:18 Cardiovascular: Rate: normal, Rhythm: regular. 10:18 Respiratory: the patient does not display signs of respiratory distress, Respirations: normal, Breath sounds: are clear throughout. 10:18 Abdomen/GI: 10:18 Musculoskeletal/extremity: ROM: intact in all extremities. 10:18 Skin: Appearance: Color: normal in color. 10:18 Neuro: Orientation: is normal, Mentation: is normal, Memory: is normal, Cerebellar function: normal finger to nose testing, heel to harrington testing is normal, Gait: is steady. 10:18 Psych: Behavior/mood is pleasant, cooperative. Vital Signs: 09:43 BP 140 / 85; Pulse 69; Resp 16; Temp 97.4(TE); Pulse Ox 100% on R/A; Weight 79.38 kg; ss Height 5 ft. 8 in. (172.72 cm); Pain 0/10; 11:45 BP 135 / 18; Pulse 67; Resp 18; Pulse Ox 97% on R/A; aj1 12:57 BP 136 / 78; Pulse 66; Resp 18; Pulse Ox 100% on R/A; aj1 09:43 Body Mass Index 26.61 (79.38 kg, 172.72 cm) ss MDM: 10:17 Patient medically screened. [facility] 13:26 Data reviewed: vital signs, nurses notes. Test interpretation: by ED physician or [facility] midlevel provider: ECG. Counseling: I had a detailed discussion with the patient and/or guardian regarding: the historical points, exam findings, and any diagnostic results supporting the discharge/admit diagnosis, lab results, radiology results, the need for outpatient follow up, to return to the emergency department if symptoms worsen or persist or if there are any questions or concerns that arise at home. ED course: Patient's symptoms relieved after meclizine. Normal neuro exam. Normal gait. CT negative. EKG normal. Patient is advised to follow up with neuro for further evaluation. Patient understood and agrees with the plan of care. . 09/29 10:18 Order name: Basic Metabolic Panel; Complete Time: 11: [facility] 09/29 10:18 Order name: CBC with Diff; Complete Time: : [facility] 09/29 10:18 Order name: LFT's; Complete Time: : [facility] 09/29 10:18 Order name: Magnesium; Complete Time: 11:52 [facility] 09/29 10:18 Order name: NT PRO-BNP; Complete Time: 11:52 [facility] 09/29 10:18 Order name: PT-INR; Complete Time: 11:52 [facility] 09/29 10:18 Order name: Troponin (emerg Dept Use Only); Complete Time: 11:52 [facility] 09/29 10:18 Order name: XRAY Chest (1 view) [facility] 09/29 10:18 Order name: EKG; Complete Time: 10:19 [facility] 09/29 10:18 Order name: CT Head Brain wo Cont [facility] 09/29 11:15 Order name: CT [facility] 09/29 11:21 Order name: RAD [facility] 09/29 10:18 Order name: Cardiac monitoring; Complete Time: 11:33 [facility] 09/29 10:18 Order name: EKG - Nurse/Tech; Complete Time: 10:51 [facility] 09/29 10:18 Order name: IV Saline Lock; Complete Time: 11:32 [facility] 09/29 10:18 Order name: Labs collected and sent; Complete Time: 11:32 [facility] 09/29 10:18 Order name: O2 Per Protocol; Complete Time: 11:33 [facility] 09/29 10:18 Order name: O2 Sat Monitoring; Complete Time: 11:33 [facility] Administered Medications: 11:56 Drug: Meclizine 50 mg Route: PO; rb1 13:09 Follow up: Response: No adverse reaction aj1 12:30 Drug: Potassium Chloride 40 mEq Route: PO; aj1 13:09 Follow up: Response: No adverse reaction aj1 Disposition: 16:12 Co-signature as Attending Physician, Yuan Temple MD I agree with the assessment and kdr plan of care. Disposition: 09/29/18 13:28 Discharged to Home. Impression: Vertigo. - Condition is Stable. - Discharge Instructions: Vertigo. - Prescriptions for Meclizine 25 mg Oral Tablet - take 1 tablet by ORAL route every 8 hours As needed; 30 tablet. - Medication Reconciliation Form, Thank You Letter, Antibiotic Education, Prescription Opioid Use form. - Follow up: Wilfrid De Luna MD; When: 2 - 3 days; Reason: Recheck today's complaints, Continuance of care, Re-evaluation by your physician. Signatures: Dispatcher [employer] Vaishali Benitez RN RN aj1 Yuan Temple MD MD kdr Mickail, Joel, PA PA jmm Smirch, Shelby, RN RN ss Brittny Khan, RN RN rb1 Corrections: (The following items were deleted from the chart) 13:39 13:28 09/29/2018 13:28 Discharged to Home. Impression: Vertigo. Condition is Stable. aj1 Forms are Medication Reconciliation Form, Thank You Letter, Antibiotic Education, Prescription Opioid Use. Follow up: Wilfrid De Luna; When: 2 - 3 days; Reason: Recheck today's complaints, Continuance of care, Re-evaluation by your physician. alisson
== END 2018-09-29 13:39 | disposition home or self-care (01) ==
LOC: ER 09:29
DX: R42 Dizziness and giddiness (principal); R53.1 Weakness; Z88.6 Allergy status to analgesic agent; Z88.1 Allergy status to other antibiotic agents; Z88.5 Allergy status to narcotic agent; Z91.018 Allergy to other foods
CPT/HCPCS: 36415; 70450; 71045; 80048; 80076; 83735; 83880; 84484; 85025; 85610; 93005; 99285

== ENCOUNTER 2019-12-23 10:54 | Emergency (ER) | payer OTHER ==
--- OUTSIDE RECORDS SUMMARY | 2019-12-23 10:57 | XMS REPORT ---
:1955 Author Organization [facility] t Address [address] [place] [address] [address] [place] [address] Care Team Providers Name Role Phone QUINONES Unavailable Unavailable WILI HILLS M.D. 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 Clinician (SIG) Name Name Potassium Potassium Yes TABS TABS Singulair Singulair Yes TABS TABS Fiber TABS Fiber TABS Yes Symbicort Symbicort Yes AERO AERO Centrum Centrum Yes TABS TABS Vitamin Vitamin Yes B-12 TABS B-12 TABS Selenium Selenium Yes TABS TABS Magnesium Magnesium Yes TABS TABS LORazepam 1 LORazepam 1 Yes MG Oral MG Oral Tablet Tablet Chlorthalid Chlorthalid Yes one TABS one TABS Procedures and Interventions Procedure Date / Time Performed Performing Clinici an History of hysterectomy total History of endometrial biopsy Encounters Start End Encounter Admission Attending Care Care Encounter Date/Time Date/Time Type Type Clinicians Facility Department ID 2019-09-16 Inpatient C EDVIN QUINONES BALANCE PT [id number] 10:34:00 [facility] 2017-11-08 2017-11-08 Appointment [facility] [id number] 09:40:00 09:40:00 ; WILI HILLS AUBREY, M.D. M.D. 2017-03-10 2017-03-10 Appointment [facility] [id number] 13:40:00 13:40:00 ; WILI HILLS AUBREY, M.D. M.D. 2017-02-02 2017-02-02 Appointment [facility] [id number] 14:00:00 14:00:00 ; WILI HILLS AUBREY, M.D. M.D. 2017-02-02 2017-02-02 Appointment [facility] [id number] 14:00:00 14:00:00 ; WILI HILLS AUBREY, M.D. M.D.
--- NOTE | 2019-12-23 12:10 | EDPHYS ---
Physician Documentation [facility] Name: Vitor Stephens Age: 64 yrs Sex: Female : 1955 Arrival Date: 12/23/2019 Time: 10:57 Bed 17 Private MD: Out, [facility] ED Physician Tacho Badillo HPI: 12/22 11:56 This 64 yrs old Black Female presents to ER via Ambulatory with complaints of Rash. violette 11:56 The patient's rash thought to be caused by Dermatitis mild folliculitis right arm, left violette arm ans left harrington. The rash is located on the right arm, left arm and left leg. The rash can be described as confluent, erythematous, raised. Onset: The symptoms/episode began/occurred 2 day(s) ago. Associated signs and symptoms: Pertinent positives: burning sensation, itching. Severity of symptoms: At their worst the symptoms were mild in the emergency department the symptoms are unchanged. Treatment given at home: none. The patient has not experienced similar symptoms in the past. Historical: - Allergies: 11:17 Almonds; hb 11:17 Codeine; hb 11:17 Doxycycline; hb 11:17 NSAIDS; hb - PMHx: 11:17 mitral valve prolapse; hb - Immunization history:: Adult Immunizations up to date. - Social history:: Smoking status: Patient denies any tobacco usage or history of. - Family history:: not pertinent. ROS: 11:56 Constitutional: Negative for fever, chills, and weight loss, Eyes: Negative for injury, violette pain, redness, and discharge, ENT: Negative for injury, pain, and discharge, Neck: Negative for injury, pain, and swelling, Cardiovascular: Negative for chest pain, palpitations, and edema, Respiratory: Negative for shortness of breath, cough, wheezing, and pleuritic chest pain, Abdomen/GI: Negative for abdominal pain, nausea, vomiting, diarrhea, and constipation, Back: Negative for injury and pain, : Negative for injury, bleeding, discharge, and swelling, Skin: Negative for injury, rash, and discoloration, Neuro: Negative for headache, weakness, numbness, tingling, and seizure, Psych: Negative for depression, anxiety, suicide ideation, homicidal ideation, and hallucinations, Allergy/Immunology: Negative for hives, rash, and allergies, Endocrine: Negative for neck swelling, polydipsia, polyuria, polyphagia, and marked weight changes, Hematologic/Lymphatic: Negative for swollen nodes, abnormal bleeding, and unusual bruising. 11:56 MS/extremity: Positive for pain, rash, cw folliculitis, no vesicles. Exam: 11:56 Constitutional: This is a well developed, well nourished patient who is awake, alert, violette and in no acute distress. Head/Face: Normocephalic, atraumatic. Eyes: Pupils equal round and reactive to light, extra-ocular motions intact. Lids and lashes normal. Conjunctiva and sclera are non-icteric and not injected. Cornea within normal limits. Periorbital areas with no swelling, redness, or edema. ENT: Nares patent. No nasal discharge, no septal abnormalities noted. Tympanic membranes are normal and external auditory canals are clear. Oropharynx with no redness, swelling, or masses, exudates, or evidence of obstruction, uvula midline. Mucous membranes moist. Neck: Trachea midline, no thyromegaly or masses palpated, and no cervical lymphadenopathy. Supple, full range of motion without nuchal rigidity, or vertebral point tenderness. No Meningismus. Chest/axilla: Normal chest wall appearance and motion. Nontender with no deformity. No lesions are appreciated. Cardiovascular: Regular rate and rhythm with a normal S1 and S2. No gallops, murmurs, or rubs. Normal PMI, no JVD. No pulse deficits. Respiratory: Lungs have equal breath sounds bilaterally, clear to auscultation and percussion. No rales, rhonchi or wheezes noted. No increased work of breathing, no retractions or nasal flaring. Abdomen/GI: Soft, non-tender, with normal bowel sounds. No distension or tympany. No guarding or rebound. No evidence of tenderness throughout. Back: No spinal tenderness. No costovertebral tenderness. Full range of motion. MS/ Extremity: Pulses equal, no cyanosis. Neurovascular intact. Full, normal range of motion. Neuro: Awake and alert, GCS 15, oriented to person, place, time, and situation. Cranial nerves II-XII grossly intact. Motor strength 5/5 in all extremities. Sensory grossly intact. Cerebellar exam normal. Normal gait. Psych: Awake, alert, with orientation to person, place and time. Behavior, mood, and affect are within normal limits. 11:56 Skin: folliculitis. Vital Signs: 11:15 BP 147 / 74; Pulse 72; Resp 16; Temp 97.4; Pulse Ox 100% ; Weight 72.57 kg; Height 5 hb ft. 8 in. (172.72 cm); Pain 4/10; 11:15 Body Mass Index 24.33 (72.57 kg, 172.72 cm) hb MDM: 11:24 Patient medically screened. [facility] 12:06 Data reviewed: vital signs, nurses notes. [facility] Administered Medications: No medications were administered Disposition: 12/23/19 12:09 Discharged to Home. Impression: Dermatitis, unspecified - folliculitis. - Condition is Stable. - Discharge Instructions: Contact Dermatitis, Rash. - Prescriptions for Bactroban 2 % Topical Ointment - Apply to affected area 1 application by TOPICAL route every 12 hours; 30 gram. Hydroxyzine HCl 25 mg Oral Tablet - take 1 tablet by ORAL route every 6 hours As needed; 30 tablet. Bactrim DS 800- 160 mg Oral Tablet - take 1 tablet by ORAL route every 12 hours for 10 days; 20 tablet. - Medication Reconciliation Form, Thank You Letter, Antibiotic Education, Prescription Opioid Use form. - Follow up: Private Physician; When: 2 - 3 days; Reason: Recheck today's complaints, Continuance of care, Re-evaluation by your physician. - Problem is new. - Symptoms have improved. Signatures: Tacho Badillo MD MD cha Baxter, Heather, KIRT MORALEZ Karen Parsons RN RN Corrections: (The following items were deleted from the chart) 13:11 12:09 12/23/2019 12:09 Discharged to Home. Impression: Dermatitis, unspecified - ah folliculitis. Condition is Stable. Forms are Medication Reconciliation Form, Thank You Letter, Antibiotic Education, Prescription Opioid Use. Follow up: Private Physician; When: 2 - 3 days; Reason: Recheck today's complaints, Continuance of care, Re-evaluation by your physician. Problem is new. Symptoms have improved. [facility]
--- NOTE | 2019-12-23 12:10 | ER ---
Nurse's Notes [facility] Name: Vitor Stephens Age: 64 yrs Sex: Female : 1955 Arrival Date: 12/23/2019 Time: 10:57 Bed 17 Private MD: Out, [facility] Diagnosis: Dermatitis, unspecified-folliculitis Presentation: 12/22 11:15 Chief complaint: Burning rash on bilateral arms x 1 week. Hx of shingles, reports pain hb is similar. Coronavirus screen: Proceed with normal triage. Ebola Screen: No symptoms or risks identified at this time. Initial Sepsis Screen: Does the patient meet any 2 criteria? No. Patient's initial sepsis screen is negative. Does the patient have a suspected source of infection? No. Patient's initial sepsis screen is negative. Risk Assessment: Do you want to hurt yourself or someone else? Patient reports no desire to harm self or others. Onset of symptoms was December 16, 2019. 11:15 Method Of Arrival: Ambulatory hb 11:15 Acuity: TRAE 4 hb Historical: - Allergies: 11:17 Almonds; hb 11:17 Codeine; hb 11:17 Doxycycline; hb 11:17 NSAIDS; hb - PMHx: 11:17 mitral valve prolapse; hb - Immunization history:: Adult Immunizations up to date. - Social history:: Smoking status: Patient denies any tobacco usage or history of. - Family history:: not pertinent. Screenin:00 Abuse screen: Denies threats or abuse. Nutritional screening: No deficits noted. Tuberculosis screening: No symptoms or risk factors identified. Fall Risk None identified. Assessment: 11:45 General: Appears in no apparent distress. Behavior is calm, cooperative. Pain: Complains of pain in bilateral arms and lower legs Pain does not radiate. Neuro: Level of Consciousness is awake, alert, Oriented to person, place, time, situation. Cardiovascular: No deficits noted. Respiratory: Airway is patent Respiratory effort is even, unlabored, Respiratory pattern is regular, symmetrical, Breath sounds are clear. GI: No signs and/or symptoms were reported involving the gastrointestinal system. : No signs and/or symptoms were reported regarding the genitourinary system. EENT: No signs and/or symptoms were reported regarding the EENT system. Derm: Rash noted that is red raised area noted to Bilateral upper and lower extremities. Pt states that the area around them are burning. she denies changing any soaps or detergents recently. Denies itching. Musculoskeletal: No signs and/or symptoms reported regarding the musculoskeletal system. Vital Signs: 11:15 BP 147 / 74; Pulse 72; Resp 16; Temp 97.4; Pulse Ox 100% ; Weight 72.57 kg; Height 5 hb ft. 8 in. (172.72 cm); Pain 4/10; 11:15 Body Mass Index 24.33 (72.57 kg, 172.72 cm) ED Course: 10:57 Patient arrived in ED. mr 10:57 Out, of [facility] is Private Physician. mr 11:17 Triage completed. 11:17 Arm band placed on. 11:24 Tacho Badillo MD is Attending Physician. [facility] 11:30 Patient has correct armband on for positive identification. 11:41 Karen Parsons, RN is Primary Nurse. 12:00 No provider procedures requiring assistance completed. Patient did not have IV access during this emergency room visit. Administered Medications: No medications were administered Outcome: 12:09 Discharge ordered by . [facility] 12:45 Discharged to home ambulatory. 12:45 Condition: good 12:45 Discharge instructions given to patient, Instructed on discharge instructions, follow up and referral plans. medication usage, Demonstrated understanding of instructions, follow-up care, medications, Prescriptions given X 3. 13:11 Patient left the ED. Signatures: Tacho Badillo MD MD cha Rivera, Mary mr NicholsChasidy RN RN Karen Parsons RN RN
[2019-12-23 13:26] VITALS: BP 147/74; TEMP 97.4; O2SAT 100
== END 2019-12-23 13:11 | disposition home or self-care (01) ==
LOC: ER 10:54
DX: L30.9 Dermatitis, unspecified (principal); L73.9 Follicular disorder, unspecified; Z88.1 Allergy status to other antibiotic agents; Z88.5 Allergy status to narcotic agent; Z88.6 Allergy status to analgesic agent; Z91.018 Allergy to other foods
CPT/HCPCS: 99282